=== PATIENT | male | born 1985 | race Caucasian/White ===

== ENCOUNTER 2020-09-29 16:38 | Emergency (ER) | payer SELFPAY ==
[~2020-09-29] VITALS: Ht 190.5 cm; Wt 100.0 kg
[2020-09-29 16:50] VITALS: Ht 190.5 cm; Wt 100.0 kg
[2020-09-29 17:52] LABS: BASOPHILS 0.3 % (0-2); EOSINOPHILS 1.3 % (0-7); HEMATOCRIT 41.4 % (42.0-54.0); LYMPHOCYTES 8.6 % (15-50); MCH 29.4 pg (26.0-34.0); MCHC 33.8 g/dL (31.0-37.0); MEAN PLATELET VOLUME 7.9 fL (7.4-10.4); MONOCYTES 6.2 % (2-11); NEUTROPHILS 83.6 % (40-80); PLATELET COUNT 194 10x3/uL (130-400); RBC 4.76 10x6/uL (4.20-6.10); RDW 14.6 % (11.5-14.5); WBC 7.8 10x3/uL (4.8-10.8)
[2020-09-29 17:58] LABS: CALC OSMOLALITY 267 mosm/kg (275-300); CARBON DIOXIDE 24.1 mmol/L (21.0-32.0); CHLORIDE - SERUM 99 mmol/L (98-107); CREATININE - SERUM 1.5 mg/dL (0.6-1.3); GLUCOSE 128 mg/dL (74-106); POTASSIUM - SERUM 4.4 mmol/L (3.5-5.1); SODIUM 131 mmol/L (136-145); UREA NITROGEN 22 mg/dL (7-18); eGFR NON AFRICAN AMERICAN 58 mL/min (90-120)
[2020-09-29 18:00] LABS: BILIRUBIN NEGATIVE (NEGATIVE); KETONE NEGATIVE mg/dL (< 1+); NITRITE NEGATIVE (NEGATIVE); SQUAMOUS EPITHELIAL <1 HPF (0-4); UROBILINOGEN NORMAL mg/dL (< 2); WHITE CELLS - URINE 3 HPF (0-1)
[2020-09-29 18:07] LABS: ALBUMIN 2.6 g/dL (3.4-5.0); ALKALINE PHOSPHATASE 252 U/L (30-120); ALT (SGPT) 275 U/L (10-68); AMYLASE - SERUM 27 U/L (25-115); BILIRUBIN - TOTAL 0.42 mg/dL (0.2-1.3); PROTEIN - SERUM 6.7 g/dL (6.4-8.2)
[2020-09-29 18:10] LABS: LIPASE 39 U/L (73-393); TROPONIN-I < 0.017 ng/mL (0.000-0.060)
[2020-09-29 19:40] LABS: UDS - AMPHET NEGATIVE QUAL (NEGATIVE); UDS - BARB NEGATIVE QUAL (NEGATIVE); UDS - BENZO NEGATIVE QUAL (NEGATIVE); UDS - COCAINE NEGATIVE QUAL (NEGATIVE); UDS - OPIATE NEGATIVE QUAL (NEGATIVE); UDS - PCP NEGATIVE QUAL (NEGATIVE); UDS - THC NEGATIVE QUAL (NEGATIVE)
[2020-09-29 20:59] LABS: CREATINE KINASE 15 UL (21-232); TROPONIN-I < 0.017 ng/mL (0.000-0.060)
[2020-09-29 23:14] LABS: SARS-CoV-2 ANTIGEN NEGATIVE- SARS-COV-2 (NEGATIVE)
[2020-09-30] MEDS ORDERED: ZOFRAN ODT4 MG/UDTAB PO (00:33)
[2020-09-30 00:54] VITALS: BP 100/61
== END 2020-09-30 00:54 | disposition left against medical advice (07) ==
LOC: D.ER 16:38
PROVIDERS: Emergency Medicine; Family Medicine
DX: R50.9 Fever, unspecified (principal); E86.0 Dehydration; R51.9 Headache, unspecified; E87.1 Hypo-osmolality and hyponatremia; K52.9 Noninfective gastroenteritis and colitis, unspecified; R11.2 Nausea with vomiting, unspecified; B34.9 Viral infection, unspecified; M79.10 Myalgia, unspecified site